=== PATIENT | male | born 1965 | race African-American/Black ===

== ENCOUNTER 2016-09-22 10:27 | Emergency (ER) | payer MEDICAID ==
[~2016-09-22] VITALS: Ht 182.9 cm; Wt 122.5 kg
[2016-09-22] MEDS ORDERED: MORPHINE SULFATE INJ 4 MG/ML DISP.SYRIN ONE ×2 (10:37→10:51)
[2016-09-22] MEDS ORDERED: NITROGLYCERIN PACKET 1 GM PACKET ONE ×2 (10:37→10:52)
[2016-09-22] MEDS ORDERED: ONDANSETRON HCL/PF 4 MG/2 ML VIAL ONE ×2 (10:37→10:51)
--- NOTE | 2016-09-22 10:37 | NUR ---
PRESENTS SELF TO ED DT CHEST PAIN, SHARP, 10/10 X 2 HOURS WORST IN THE LAST 30 MINS,. PATIENT IS AAO4. APPEARS IN MILD DISTRESS DT SEVERE CHEST PAIN. SKIN IS WARM TO TOUCH AND NON DIAPHORETIC,. PT IS AFEBRILE. VSS
[2016-09-22] MEDS ORDERED: ASPIRIN 325 MG TABLET ONE ×2 (10:38→10:52)
--- NOTE | 2016-09-22 10:40 | NUR ---
EKG IN PROGRESS
--- NOTE | 2016-09-22 10:41 | NUR ---
CODE STEMI ACTIVATED BY DR. BLANCO
--- NOTE | 2016-09-22 10:43 | NUR ---
CALLED [facility] SPOKE WITH JOE
--- NOTE | 2016-09-22 10:46 | NUR ---
FAXED EKG AND FACESHEET TO
[2016-09-22 10:54] LABS: BASOPHILS # (AUTO) 0.2 /CMM (0.0-0.2); BASOPHILS % (AUTO) 3.3 % (0.0-2.0); EOSINOPHILS # (AUTO) 0.1 /CMM (0.0-0.7); EOSINOPHILS % (AUTO) 1.5 % (0.0-6.0); HEMATOCRIT 43 % (39-51); HEMOGLOBIN 14.2 g/dL (13.5-17.5); LYMPHOCYTES # (AUTO) 1.1 /CMM (0.8-4.8); LYMPHOCYTES % (AUTO) 20.2 % (20.0-44.0); MEAN CORPUSCULAR HEMOGLOBIN 27 PG (26.0-33.0); MEAN CORPUSCULAR HGB CONC 33 g/dl (31.0-36.0); MEAN CORPUSCULAR VOLUME 83 fL (80-96); MONOCYTES # (AUTO) 0.6 /CMM (0.1-1.30); MONOCYTES % (AUTO) 11.1 % (2.0-12.0); NEUTROPHILS # (AUTO) 3.6 /CMM (1.8-8.9); NEUTROPHILS % (AUTO) 63.9 % (43.0-81.0); PLATELET COUNT (AUTO) 320 /CMM (150-450); RDW COEFFICIENT OF VARIATION 14.6 (11.5-15.0); RED BLOOD CELL COUNT(AUTO) 5.23 MIL/uL (4.5-6.0); WHITE BLOOD COUNT (AUTO) 5.6 K/uL (4.3-11.0)
--- NOTE | 2016-09-22 10:58 | NUR ---
BLADE GROOVER AT BS
[2016-09-22] MEDS ORDERED: HEPARIN SODIUM, PORCINE 5000 UNITS/1 ML VIAL ONE (11:00)
[2016-09-22] MEDS ORDERED: MORPHINE SULFATE INJ 2 MG/ML DISP.SYRIN IV ONE (11:00)
[2016-09-22] MEDS ORDERED: HEPARIN SODIUM, PORCINE 5000 UNITS/1 ML VIAL IV ONE (11:00)
[2016-09-22] MEDS ORDERED: ASPIRIN 325 MG TABLET PO ONE (11:00)
[2016-09-22] MEDS ORDERED: NITROGLYCERIN PACKET 1 GM PACKET TD ONE (11:00)
[2016-09-22] MEDS ORDERED: ONDANSETRON HCL/PF 4 MG/2 ML VIAL IVP ONE (11:00)
[2016-09-22 11:06] LABS: INR 1.02 (0.87-1.13); PROTHROMBIN TIME 10.6 SECS (9.5-12.7)
--- NOTE | 2016-09-22 11:09 | NUR ---
[facility] CALLED, ETA OF 10 MINS. GEOMORPHOLOGY TEACHER PHONE # TO GIVE REPORT .
[2016-09-22 11:11] LABS: TROPONIN I < 0.017 ng/mL (0.00-0.056)
[2016-09-22 11:15] LABS: B-TYPE NATRIURETIC PEPTIDE 205 PG/ML (0-125); CALCIUM, SERUM 9.3 mg/dL (8.5-10.1); CARBON DIOXIDE 26 mmol/L (21-32); CHLORIDE 103 mmol/L (98-107); CREATININE 1.1 mg/dL (0.6-1.3); GLUCOSE 269 mg/dL (74-106); POTASSIUM 4.3 mmol/L (3.5-5.1); SODIUM SERUM 139 mmol/L (136-145)
--- NOTE | 2016-09-22 11:24 | NUR ---
PATIENT WAS PICKED UP BY [facility]. DENYS
[2016-09-22 11:25] VITALS: BP 136/80
[2016-09-22 11:29] LABS: UREA NITROGEN, BLOOD 17 mg/dL (7-18)
== END 2016-09-22 11:27 | disposition short-term general hospital (02) ==
LOC: ER 10:29
DX: I24.9 Acute ischemic heart disease, unspecified (principal); I10 Essential (primary) hypertension; E11.9 Type 2 diabetes mellitus without complications; E78.5 Hyperlipidemia, unspecified
CPT/HCPCS: 36415; 71010; 80048; 83880; 84484; 85025; 85730; 93005 ×2; 96374 ×2; 96375; 99291; A4606; J1644; J2270; J2405; J7030; Z7610

== ENCOUNTER 2017-01-29 16:36 | Inpatient (IN) | payer OTHER ==
[~2017-01-29] VITALS: Ht 185.4 cm; Wt 113.4 kg
--- NOTE | 2017-01-29 16:45 | NUR ---
PT CAME IN WITH C/O SLIPPED AND FELL IN THE BATHROOM LAST NIGHT,C/O PAIN AND NUMBNESS IN LEFT SIDE OF THE BODY. SEEN BY FOR EVAL. ADRIAN FLANNERY. VSS. PT AAOX3. SAFETY AND COMFORT MEASURES PROVIDED. WILL MONITOR.
[2017-01-29 18:14] LABS: BASOPHILS # (AUTO) 0.1 /CMM (0.0-0.2); BASOPHILS % (AUTO) 2.2 % (0.0-2.0); EOSINOPHILS # (AUTO) 0.1 /CMM (0.0-0.7); EOSINOPHILS % (AUTO) 1.5 % (0.0-6.0); HEMATOCRIT 43 % (39-51); HEMOGLOBIN 14.4 g/dL (13.5-17.5); LYMPHOCYTES # (AUTO) 1.1 /CMM (0.8-4.8); LYMPHOCYTES % (AUTO) 20.8 % (20.0-44.0); MEAN CORPUSCULAR HEMOGLOBIN 28 PG (26.0-33.0); MEAN CORPUSCULAR HGB CONC 33 g/dl (31.0-36.0); MEAN CORPUSCULAR VOLUME 83 fL (80-96); MONOCYTES # (AUTO) 0.4 /CMM (0.1-1.30); MONOCYTES % (AUTO) 7.6 % (2.0-12.0); NEUTROPHILS # (AUTO) 3.6 /CMM (1.8-8.9); NEUTROPHILS % (AUTO) 67.9 % (43.0-81.0); PLATELET COUNT (AUTO) 256 /CMM (150-450); RDW COEFFICIENT OF VARIATION 13.3 (11.5-15.0); RED BLOOD CELL COUNT(AUTO) 5.24 MIL/uL (4.5-6.0); WHITE BLOOD COUNT (AUTO) 5.3 K/uL (4.3-11.0)
--- NOTE | 2017-01-29 18:25 | NUR ---
PT TAKEN TO CT SCAN.
[2017-01-29 18:27] LABS: INR 1.08 (0.87-1.13); PROTHROMBIN TIME 11.2 SECS (9.5-12.7)
[2017-01-29 18:30] LABS: ALANINE AMINOTRANSFERASE 25 U/L (12-78); ALBUMIN 3.4 g/dL (3.4-5.0); ALKALINE PHOSPHATASE 62 U/L (46-116); ASPARTATE AMINOTRANSFERASE 14 U/L (15-37); BILIRUBIN,DIRECT 0.2 mg/dL (0.0-0.2); BILIRUBIN,TOTAL 1.3 mg/dL (0.2-1.0); CALCIUM, SERUM 9.1 mg/dL (8.5-10.1); CARBON DIOXIDE 27 mmol/L (21-32); CHLORIDE 104 mmol/L (98-107); CREATININE 1.1 mg/dL (0.6-1.3); SODIUM SERUM 137 mmol/L (136-145); TOTAL PROTEIN, SERUM 6.9 g/dL (6.4-8.2); UREA NITROGEN, BLOOD 17 mg/dL (7-18)
[2017-01-29 18:32] LABS: TROPONIN I < 0.017 ng/mL (0.00-0.056)
[2017-01-29 18:33] LABS: GLUCOSE 358 mg/dL (74-106)
[2017-01-29 18:49] LABS: APPEARANCE,URINE Clear (CLEAR); BILIRUBIN,URINE Negative (NEGATIVE); BLOOD, URINE Negative Ery/uL (NEGATIVE); COLOR,URINE Yellow (YELLOW); KETONES,URINE Trace (NEGATIVE); LEUKOCYTE ESTERASE ,URINE Negative (NEGATIVE); NITRITE, URINE Negative (NEGATIVE); PH,URINE 5.5 (5.0-8.0); PROTEIN,URINE Negative (NEGATIVE); UGLUCOSE >=1000 mg/dL (NEGATIVE)
--- NOTE | 2017-01-29 19:20 | NUR ---
PT COMPLAINS OF PAIN- MD AWARE. RECEIVED VERBAL ORDERS FOR TYLENOL 1 GRAM PO. ORDERS CARRIED OUT.
[2017-01-29] MEDS ORDERED: ACETAMINOPHEN ES 500 MG TABLET ONE (19:22)
--- NOTE | 2017-01-29 20:04 | NUR ---
AT TO DISCUSS TEST RESULTS TO PT.
[2017-01-29] MEDS ORDERED: KETOROLAC TROMETHAMINE INJ 60 MG/2 ML VIAL IM ONE (20:30)
[2017-01-29] MEDS ORDERED: KETOROLAC TROMETHAMINE INJ 30 MG/ML VIAL ONE (20:36)
[2017-01-29] MEDS ORDERED: MORPHINE SULFATE INJ 2 MG/ML DISP.SYRIN IV PRN (22:00)
[2017-01-29] MEDS ORDERED: MAGNESIUM HYDROXIDE 30 ML UDC PO PRN (22:00)
[2017-01-29] MEDS ORDERED: HYDROCODONE/APAP 5/325MG 1 EACH TABLET PO PRN (22:00)
[2017-01-29] MEDS ORDERED: ONDANSETRON HCL/PF 4 MG/2 ML VIAL IVP PRN (22:00)
[2017-01-29] MEDS ORDERED: Z GUARD REMEDY 2 OZ OINT TP PRN (22:00)
[2017-01-29] MEDS ORDERED: MAG HYDROX/AL HYDROX/SIMETH 30 ML UDC PO PRN (22:00)
[2017-01-29] MEDS ORDERED: ACETAMINOPHEN 325 MG TABLET PO PRN (22:00)
--- NOTE | 2017-01-29 22:25 | NUR ---
PT REFUSED ULTRASOUND, JACEK MOFFETT NP
--- NOTE | 2017-01-29 22:33 | NUR ---
REPORT GILDARDO CHILEL FOR MS 203.
--- NOTE | 2017-01-29 22:35 | NUR ---
RN NOTES PT IS COMPLAINING OF PAIN ON BOTH LOWER LEG AND LEFT SIDE OF HIS BODY, 11/21. MORPHINE 2MG GIVEN IV. WILL CONTINUE TO MONITOR PT.
--- NOTE | 2017-01-29 22:55 | NUR ---
RN NOTES ADMITTED A 51 YEARS OLD MALE PT FROM ER VIA GURNEY. PT ALERT AND ORIENTED X3, DENIES NAUSEA AND VOMITING. STILL COMPLAINING OF PAIN ON BOTH LOWER LEG AND LEFT SIDE OF THE BODY. IV ACCESS ON LEFT AC PATENT AND INTACT. AMBULATES TO THE BATHROOM WITH FWW WITH ASSIST. SKIN AND BODY ASSESSMENT DONE, SKIN CLEAR AND INTACT. KEPT COMFORTABLE AND ATTENDED, WITH CALL LIGHT WITHIN REACH. PLAN OF CARE DISCUSSED WITH THE PT. WILL CONTINUE TO MONITOR.
[2017-01-29 23:00] VITALS: BP 162/85
[2017-01-29] MEDS ORDERED: MORPHINE SULFATE INJ 2 MG/ML DISP.SYRIN ONE (23:28)
[2017-01-30] MEDS ORDERED: ASPI-605 PO (00:29)
[2017-01-30] MEDS ORDERED: *INS REG3 IJ (00:29)
[2017-01-30] MEDS ORDERED: GABA600T2 PO (00:29)
[2017-01-30] MEDS ORDERED: LANTUS SUBCUT (00:29)
[2017-01-30] MEDS ORDERED: ATOR20TA PO (00:29)
[2017-01-30] MEDS ORDERED: BENA20TA2 PO (00:29)
--- NOTE | 2017-01-30 00:55 | NUR ---
RN NOTES PT STILL COMPLAINING OF SEVERE PAIN AFTER GIVING MORPHINE AND REFUSED TO TAKE NORCO 5/325MG TAB. PT SAID HE'S TAKING NORCO 10/325 AND DILAUDID 4MG AT HOME. JACEK MOFFETT MADE AWARE WITH ORDER OF DILAUDID 1MG IVP X1.
[2017-01-30] MEDS ORDERED: HYDROMORPHONE 1 MG/1 ML DISP.SYRIN IV PRN (01:00)
--- NOTE | 2017-01-30 01:39 | NUR ---
RN NOTES DILAUDID INJECTION UNAVAILABLE, JACEK MOFFETT MADE AWARE WITH ORDER TO GIVE MORPHINE 2MG Q2H PRN AND ND NORCO 10/325 MG TAB Q6H PRN. PT NOTIFIED OF THE NEW ORDER AND PREFERS TO TAKE NORCO 10/325 MG TAB INSTEAD OF MORPHINE. WILL CONTINUE TO MONITOR.
[2017-01-30] MEDS ORDERED: HYDROCODONE/APAP 10/325MG 1 EA TABLET ONE (01:49)
[2017-01-30] MEDS: HYDROCODONE/APAP 10/325MG 1 EA TABLET PO PRN ×2 (01:53→09:20)
--- NOTE | 2017-01-30 01:53 | NUR ---
RN NOTES NORCO 10/325MG TAB GIVEN PO FOR 10/10 GENERALIZED PAIN. WILL CONTINUE TO MONITOR PT.
[2017-01-30] MEDS ORDERED: DEXTROSE 50%-WATER 50 ML DISP.SYRIN IV PRN (02:00)
[2017-01-30 06:26] LABS: BASOPHILS % (AUTO) 0.8 % (0.0-2.0); EOSINOPHILS # (AUTO) 0.2 /CMM (0.0-0.7); EOSINOPHILS % (AUTO) 3.2 % (0.0-6.0); HEMATOCRIT 38 % (39-51); HEMOGLOBIN 12.2 g/dL (13.5-17.5); LYMPHOCYTES # (AUTO) 1.4 /CMM (0.8-4.8); LYMPHOCYTES % (AUTO) 28.9 % (20.0-44.0); MEAN CORPUSCULAR HEMOGLOBIN 27 PG (26.0-33.0); MEAN CORPUSCULAR HGB CONC 33 g/dl (31.0-36.0); MEAN CORPUSCULAR VOLUME 83 fL (80-96); MONOCYTES # (AUTO) 0.6 /CMM (0.1-1.30); MONOCYTES % (AUTO) 13.3 % (2.0-12.0); NEUTROPHILS # (AUTO) 2.5 /CMM (1.8-8.9); NEUTROPHILS % (AUTO) 53.8 % (43.0-81.0); PLATELET COUNT (AUTO) 214 /CMM (150-450); RDW COEFFICIENT OF VARIATION 14.2 (11.5-15.0); WHITE BLOOD COUNT (AUTO) 4.7 K/uL (4.3-11.0)
[2017-01-30] MEDS: BLOOD SUGAR DIAGNOSTIC 1 EACH STRIP IN SCH ×4 (06:48→21:12)
[2017-01-30] MEDS: INSULIN REGULAR, HUMAN 100 UNIT/ML 3 ML VIAL SQ PRN ×4 (06:50→22:16)
--- NOTE | 2017-01-30 07:20 | NUR ---
ms rn initial notes Received patient in bed, awake, head of bed elevated, no SOB or distress noted, on room air and tolerated well. Patient is verbally responsive and able to make needs known. IV intact and patent. Kept patient clean and comfortable in bed, call light with in patient reach, will continue to monitor accordingly.
[2017-01-30 07:28] LABS: CALCIUM, SERUM 8.5 mg/dL (8.5-10.1); CREATININE 1.1 mg/dL (0.6-1.3); MAGNESIUM 1.7 mg/dL (1.8-2.4); PHOSPHORUS 3.5 mg/dL (2.5-4.9)
--- NOTE | 2017-01-30 07:28 | NUR ---
RN NOTES PT AWAKE IN BED, ON ROOM AIR AND TOLERATED WELL. VITAL SIGNS STABLE. KEPT PAIN AT TOLERABLE LEVEL. NO EPISODE OF NAUSEA AND VOMITING. SAFETY MEASURES AND FALL PRECAUTION OBSERVED. ALL NEEDS ATTENDED. ENDORSED TO MORNING RN FOR CONTINUITY OF CARE.
[2017-01-30 07:39] LABS: THYROID STIMULATING HORMONE 0.532 uIU/mL (0.358-3.74)
[2017-01-30 07:50] VITALS: BP 164/107
[2017-01-30 08:00] VITALS: BP 164/107
[2017-01-30] MEDS: GABAPENTIN 300 MG CAPSULE PO SCH ×3 (08:10→16:35)
[2017-01-30] MEDS: BENAZEPRIL HCL 20 MG TABLET PO SCH ×2 (08:11→16:36)
[2017-01-30] MEDS: ASPIRIN EC 81 MG TABLET.DR PO SCH (08:11)
[2017-01-30] MEDS: MORPHINE SULFATE INJ 2 MG/ML DISP.SYRIN IV PRN ×3 (08:11→13:17)
[2017-01-30] MEDS: INSULIN DETEMIR 100 UNIT/ML CARTRIDGE SQ SCH ×2 (09:32→21:24)
--- NOTE | 2017-01-30 10:09 | NUR ---
MS RN NOTES Dr. Escobedo came seen and examined the patient and ordered pain management consult Dr. Quiroz. All orders carried out and noted. Will continue to monitor accordingly.
[2017-01-30] MEDS: Magnesium 1GM/D5W 100ML PREMIX 100 ML IV SCH ×2 (13:01→14:36)
[2017-01-30] MEDS: oxyCODONE HCL SR 10MG TAB.SR.12H PO SCH ×2 (14:55→21:06)
[2017-01-30] MEDS: ACETAMINOPHEN 325 MG TABLET PO SCH ×3 (14:55→23:27)
[2017-01-30 16:00] VITALS: BP 153/107
[2017-01-30] MEDS: oxyCODONE IR immediate release 5 MG CAPSULE PO PRN (16:35)
[2017-01-30] MEDS: DOCUSATE SODIUM 100 MG CAPSULE PO SCH (16:36)
--- NOTE | 2017-01-30 16:42 | NUR ---
Met with patient, he is alert and very pleasant. He lives alone, prior to admission he was ambulating with a cane, he is independent with adl's. Has a cane and walker at home, no homehealth reported. Patient might need transportation once discharge. Addendum: 01/30/17 at 1642 by ROMA ZENG RN Amended: Links added.
--- NOTE | 2017-01-30 19:09 | NUR ---
ms rn closing notes All needs provided, attended, and anticipated. Kept patient clean and comfortable in bed, call light with in patient reach, Endorsed to next shift RN to continue care.
--- NOTE | 2017-01-30 19:30 | NUR ---
RN NOTE; RECEIVED PT SITTING AT THE EDGE OF THE BED. BREATHING EVENLY. NO SOB. NAD. REPORTED FEELING MUCH BETTER AND PAIN IS CONTROLLED WELL AT THIS TIME. SKIN WARM AND DRY. NEEDS ATTENDED. PT WAS ENCOURAGED TO USE THE CALL LIGHT AND ASK FOR ASSISTANCE TO AMBULATE .BED LOW LOCKED. CALL LIGHT WITHIN REACH. WILL CONT TO MONITOR
[2017-01-30 20:00] VITALS: BP 128/84
[2017-01-30] MEDS: ATORVASTATIN 10 MG TABLET PO SCH (21:05)
--- NOTE | 2017-01-30 22:17 | NUR ---
PT REFUSED SSI REGULAR INSULIN 4UNITS. RISKS VS. BENEFITS EXPLAINED T O TH PT. PT STATED HIS LONG ACTING INSULIN WILL TAKE CARE OF HIS BS:[id number]. PT TEACHING PROVIDED . WILL CONT TO MONITOR,
[2017-01-31] MEDS: oxyCODONE IR immediate release 5 MG CAPSULE PO PRN ×3 (02:59→14:26)
--- NOTE | 2017-01-31 03:00 | NUR ---
oxy IR given for c/o severe back and LLE pain. will cont monitor.
[2017-01-31] MEDS: ACETAMINOPHEN 325 MG TABLET PO SCH ×4 (05:30→23:19)
--- NOTE | 2017-01-31 06:37 | NUR ---
RN NOTE; PT IN BED DOZING INTERMITTENTLY. BREATHING EVENLY. NO SOB. NAD. PAIN CONTROLLED WELL. NO S/S OF HYPO OR HYPERGLYCEMIA. ASSISTED W/ ADLS. NEEDS MET. CALL LIGHT WITHIN REACH. WILL CONT TO MONITOR AND WILL ENDORSE TO AM SHIFT FOR GAYLE.
[2017-01-31 06:41] LABS: BASOPHILS % (AUTO) 0.8 % (0.0-2.0); EOSINOPHILS # (AUTO) 0.2 /CMM (0.0-0.7); EOSINOPHILS % (AUTO) 4.9 % (0.0-6.0); HEMATOCRIT 39 % (39-51); HEMOGLOBIN 12.6 g/dL (13.5-17.5); LYMPHOCYTES # (AUTO) 1.2 /CMM (0.8-4.8); LYMPHOCYTES % (AUTO) 25.8 % (20.0-44.0); MEAN CORPUSCULAR HEMOGLOBIN 27 PG (26.0-33.0); MEAN CORPUSCULAR HGB CONC 32 g/dl (31.0-36.0); MEAN CORPUSCULAR VOLUME 84 fL (80-96); MONOCYTES # (AUTO) 0.6 /CMM (0.1-1.30); MONOCYTES % (AUTO) 13.8 % (2.0-12.0); NEUTROPHILS # (AUTO) 2.5 /CMM (1.8-8.9); NEUTROPHILS % (AUTO) 54.7 % (43.0-81.0); PLATELET COUNT (AUTO) 216 /CMM (150-450); RDW COEFFICIENT OF VARIATION 14.6 (11.5-15.0); RED BLOOD CELL COUNT(AUTO) 4.65 MIL/uL (4.5-6.0); WHITE BLOOD COUNT (AUTO) 4.5 K/uL (4.3-11.0)
[2017-01-31] MEDS: BLOOD SUGAR DIAGNOSTIC 1 EACH STRIP IN SCH ×4 (06:56→21:23)
[2017-01-31] MEDS: INSULIN REGULAR, HUMAN 100 UNIT/ML 3 ML VIAL SQ PRN ×4 (06:57→21:27)
[2017-01-31 07:35] LABS: CALCIUM, SERUM 8.8 mg/dL (8.5-10.1); CREATININE 0.9 mg/dL (0.6-1.3); MAGNESIUM 1.9 mg/dL (1.8-2.4); PHOSPHORUS 4.1 mg/dL (2.5-4.9); POTASSIUM 3.9 mmol/L (3.5-5.1)
[2017-01-31 08:00] VITALS: BP 144/100
--- NOTE | 2017-01-31 08:00 | NUR ---
MS RN NOTES PATIENT IN BED RESTING NO SOB OR ACUTE DISTRESS NOTED. PATIENT ALERT ORIENTED X2. PERIPHERAL IV INTACT PATENT. BED IN LOW LOCKED POSITION CALL LIGHT WITHIN REACH. WILL CONTINUE TO MONITOR.
[2017-01-31] MEDS: DOCUSATE SODIUM 100 MG CAPSULE PO SCH ×2 (08:15→17:00)
[2017-01-31] MEDS: GABAPENTIN 300 MG CAPSULE PO SCH ×3 (08:15→17:00)
[2017-01-31] MEDS: ASPIRIN EC 81 MG TABLET.DR PO SCH (08:16)
[2017-01-31] MEDS: oxyCODONE HCL SR 10MG TAB.SR.12H PO SCH ×2 (08:16→21:23)
[2017-01-31] MEDS: BENAZEPRIL HCL 20 MG TABLET PO SCH ×2 (08:17→17:01)
[2017-01-31] MEDS: INSULIN DETEMIR 100 UNIT/ML CARTRIDGE SQ SCH ×2 (08:18→21:32)
--- NOTE | 2017-01-31 12:00 | NUR ---
MS RN NOTES PATIENT SEEN AND EVALUATED BY EDEL WATCH COMMANDER ORDERS NOTED AND CARRIED OUT.
[2017-01-31 16:00] VITALS: BP 135/94
--- NOTE | 2017-01-31 19:30 | NUR ---
RN NOTE; RECEIVED PT IN BED AWAKE AND ALERT, BREATHING EVENLY. NO SOB. NAD. REPORTED PAIN UNDER CONTROL. . PT TEACHING REGARDING PAIN MANAGEMENT AND FALL PREVENTION PROVIDED. NEEDS ATTENDED. BED LOW LOCKED. CALL LIGHT WITHIN REACH. WILL CONT TO MONITOR,
--- NOTE | 2017-01-31 19:31 | NUR ---
MS RN NOTES PATIENT IN BED RESTING NO SOB OR ACUTE DISTRESS NOTED. ALL DUE MEDICATIONS ADMINISTERED ALL NEEDS MET WILL ENDORSE TO PM SHIFT GAYLE.
[2017-01-31 20:00] VITALS: BP 119/66
[2017-01-31] MEDS: ATORVASTATIN 10 MG TABLET PO SCH (21:22)
[2017-02-01] MEDS: oxyCODONE IR immediate release 5 MG CAPSULE PO PRN ×3 (04:49→18:40)
--- NOTE | 2017-02-01 04:52 | NUR ---
oxy IR given for c/o severe back and BLE pain. will cont monitor.
[2017-02-01] MEDS: ACETAMINOPHEN 325 MG TABLET PO SCH ×4 (05:26→23:19)
--- NOTE | 2017-02-01 06:00 | NUR ---
CALLED DR. GLASER AND RELAYED THE PT'S CONDITION. PAIN NOT RELIVED BY OXY IR. AND PT IS REQUESTING FOR A DIFFERENT PAIN MEDICATION. DR. GLASER W/ NO NEW ORDER. WARM PACK APPLIED . PT REPOSITIONED . WILL CONT TO MONITOR,
--- NOTE | 2017-02-01 07:00 | NUR ---
RN NOTE; PT IN BED AWAKE AND ALERT,. REPORTED PAIN IS RELIVED BY HOT PACK. NO ACUTE EVENT DURING THE NIGHT, NEEDS MET. CALL LIGHT WITHIN REACH. WILL CONT TO MONITOR,
[2017-02-01] MEDS: BLOOD SUGAR DIAGNOSTIC 1 EACH STRIP IN SCH ×4 (07:16→21:48)
[2017-02-01] MEDS: INSULIN REGULAR, HUMAN 100 UNIT/ML 3 ML VIAL SQ PRN ×4 (07:19→21:53)
[2017-02-01 08:00] VITALS: BP 142/82
--- NOTE | 2017-02-01 08:00 | NUR ---
MS RN NOTES PATIENT IN BED RESTING NO SOB OR ACUTE DISTRESS NOTED. PATIENT ALERT, ORIENTED X4. BED IN LOW LOCKED POSITION CALL LIGHT WITHIN REACH. WILL CONTINUE TO MONITOR.
[2017-02-01] MEDS: GABAPENTIN 300 MG CAPSULE PO SCH ×3 (09:19→17:24)
[2017-02-01] MEDS: oxyCODONE HCL SR 10MG TAB.SR.12H PO SCH (09:19)
[2017-02-01] MEDS: DOCUSATE SODIUM 100 MG CAPSULE PO SCH ×2 (09:19→17:24)
[2017-02-01] MEDS: BENAZEPRIL HCL 20 MG TABLET PO SCH ×2 (09:20→17:24)
[2017-02-01] MEDS: ASPIRIN EC 81 MG TABLET.DR PO SCH (09:20)
[2017-02-01] MEDS: INSULIN DETEMIR 100 UNIT/ML CARTRIDGE SQ SCH ×2 (09:22→21:54)
--- NOTE | 2017-02-01 12:00 | NUR ---
MS RN NOTES PATIENT SEEN AND EVALUATED BY EDEL UMBRELLA FINISHER ORDERS NOTED AND CARRIED OUT.
[2017-02-01 16:00] VITALS: BP 129/79
[2017-02-01] MEDS ORDERED: oxyCODONE HCL SR 10MG TAB.SR.12H PO SCH (18:00)
--- NOTE | 2017-02-01 19:39 | NUR ---
MS RN NOTES PATIENT IN BED RESTING. NO SOB OR ACUTE DISTRESS NOTED ALL DUE MEDICATIONS ADMINISTERED. PAIN MANAGED WELL WITH MEDICATIONS. ALL NEEDS MET. ENDORSED CARE TO PM SHIFT.
[2017-02-01 20:00] VITALS: BP 155/80
--- NOTE | 2017-02-01 20:00 | NUR ---
RN NOTES RECEIVED PATIENT IN BED, ALERT AND ORIENTED X3, CALM, NO SOB, NO DISTRESS, ON ROOM AIR, SPO2 100%, KEPT SAFE AND COMFORTABLE, CALL LIGHT WITHIN REACH.
[2017-02-01] MEDS: ATORVASTATIN 10 MG TABLET PO SCH (21:48)
[2017-02-02] MEDS: oxyCODONE IR immediate release 5 MG CAPSULE PO PRN ×4 (00:53→13:01)
[2017-02-02] MEDS: ACETAMINOPHEN 325 MG TABLET PO SCH ×2 (06:10→12:13)
[2017-02-02] MEDS: INSULIN REGULAR, HUMAN 100 UNIT/ML 3 ML VIAL SQ PRN ×2 (06:28→12:19)
[2017-02-02] MEDS: BLOOD SUGAR DIAGNOSTIC 1 EACH STRIP IN SCH ×2 (06:43→12:13)
--- NOTE | 2017-02-02 06:58 | NUR ---
RN NOTES PATIENT IN BED, ALERT AND AWAKE, NO SOB, NO RESPIRATORY DISTRESS, PROVIDED PAIN MEDICATION DURING SHIFT, KEPT SAFE AND COMFORTABLE, CALL LIGHT WITHIN REACH.
[2017-02-02 08:03] VITALS: BP 161/93
[2017-02-02] MEDS: DOCUSATE SODIUM 100 MG CAPSULE PO SCH (08:39)
[2017-02-02] MEDS: GABAPENTIN 300 MG CAPSULE PO SCH ×2 (08:39→12:13)
[2017-02-02] MEDS: ASPIRIN EC 81 MG TABLET.DR PO SCH (08:39)
[2017-02-02] MEDS: BENAZEPRIL HCL 20 MG TABLET PO SCH (08:40)
[2017-02-02] MEDS: INSULIN DETEMIR 100 UNIT/ML CARTRIDGE SQ SCH (08:41)
[2017-02-02] MEDS ORDERED: oxyCODONE HCL SR 20MG TAB.SR.12H PO SCH (09:00)
[2017-02-02] MEDS ORDERED: oxyCODONE HCL SR 10MG PO (12:34)
[2017-02-02] MEDS ORDERED: oxyCODONE HCL SR 20MG PO (12:34)
[2017-02-02] MEDS ORDERED: OXYC5CAP18 PO (12:34)
[2017-02-02] MEDS ORDERED: GABA300C PO (12:34)
--- NOTE | 2017-02-02 16:15 | NUR ---
M/S RN - Discharge Patient alert and oriented throughout the shift, denies pain, not in any form of distress, no c/o of numbness or tingling sensation on the left lower ext, able to ambulate with a cane, discharge home in stable condition. Patient was offered a group home placement earlier but refused. Per patient, his brother will pick him up and he'll stay at his place. Reviewed discharge instructions with patient and he verbalized full understanding of all teachings including medication management and follow up care with his PCP. Discharge papers and written prescription for gabapentin given. All belongings with the patient and he denies any missing items. Heplock removed on the LAC with catheter tip intact, no swelling, no redness at the IV site. Accompanied to the lobby and transported by private car.
[2017-02-02 16:18] VITALS: BP 121/75
== END 2017-02-02 16:15 | disposition home or self-care (01) | DRG 861 ==
LOC: ER 16:38 → MEDSG2 21:03
PROVIDERS: ADMIT Nurse Practitioner Acute Care; ATTEND Nurse Practitioner Acute Care
DX: G89.11 Acute pain due to trauma (principal); E11.42 Type 2 diabetes mellitus with diabetic polyneuropathy; E11.65 Type 2 diabetes mellitus with hyperglycemia; I10 Essential (primary) hypertension; R17 Unspecified jaundice; W18.2XXA Fall in (into) shower or empty bathtub, initial encounter; E78.5 Hyperlipidemia, unspecified; G89.4 Chronic pain syndrome; Y92.002 Bathroom of unspecified non-institutional (private) residence as the place of occurrence of the external cause; M19.90 Unspecified osteoarthritis, unspecified site; Z79.4 Long term (current) use of insulin; Z79.82 Long term (current) use of aspirin; Y93.E1 Activity, personal bathing and showering; Z79.891 Long term (current) use of opiate analgesic; M79.662 Pain in left lower leg
CPT/HCPCS: 36415; 70450-TC; 71010-TC; 72125-TC; 72128-TC; 72131-TC; 72170-TC; 80048-TC; 80061-TC; 80076-TC; 80305; 81000-TC; 82962-TC; 83735-TC; 84100-TC; 84443-TC; 84484-TC; 85025-TC; 85730-TC; 87081-TC; 97116-TC; 97530-TC; A4606; J1815; J1885; J2270; J3475; J7050; Z7610

== ENCOUNTER 2017-04-29 12:15 | Emergency (ER) | payer OTHER ==
[~2017-04-29] VITALS: Ht 185.4 cm; Wt 154.2 kg
[~2017-04-29 12:15] MED LIST: *INS REG3 IJ; ASPI-605 PO; ATOR20TA PO; BENA20TA2 PO; GABA300C PO; LANTUS SUBCUT; OXYC5CAP18 PO; oxyCODONE HCL SR 10MG PO; oxyCODONE HCL SR 20MG PO
[2017-04-29] MEDS ORDERED: ONDANSETRON 4 MG TAB.RAPDIS ONE (12:29)
[2017-04-29] MEDS: ONDANSETRON 4 MG TAB.RAPDIS SL ONE (12:35)
[2017-04-29 12:51] LABS: INR 1.02 (0.85-1.15)
[2017-04-29 12:53] LABS: ALANINE AMINOTRANSFERASE 35 U/L (12-78); ALBUMIN 3.5 g/dL (3.4-5.0); ALKALINE PHOSPHATASE 57 U/L (46-116); ASPARTATE AMINOTRANSFERASE 31 U/L (15-37); BILIRUBIN,DIRECT 0.2 mg/dL (0.0-0.2); CALCIUM, SERUM 8.8 mg/dL (8.5-10.1); CARBON DIOXIDE 26 mmol/L (21-32); CHLORIDE 104 mmol/L (98-107); GLUCOSE 146 mg/dL (74-106); SODIUM SERUM 136 mmol/L (136-145); TOTAL PROTEIN, SERUM 7.4 g/dL (6.4-8.2); UREA NITROGEN, BLOOD 25 mg/dL (7-18)
[2017-04-29 12:55] LABS: TROPONIN I < 0.017 ng/mL (0.00-0.056)
[2017-04-29 13:00] LABS: BASOPHILS % (AUTO) 0.9 % (0.0-2.0); EOSINOPHILS # (AUTO) 0.2 /CMM (0.0-0.7); EOSINOPHILS % (AUTO) 5.2 % (0.0-6.0); HEMATOCRIT 39 % (39-51); HEMOGLOBIN 12.9 g/dL (13.5-17.5); LYMPHOCYTES % (AUTO) 30.2 % (20.0-44.0); MEAN CORPUSCULAR HEMOGLOBIN 28 PG (26.0-33.0); MEAN CORPUSCULAR HGB CONC 33 g/dl (31.0-36.0); MEAN CORPUSCULAR VOLUME 83 fL (80-96); MONOCYTES # (AUTO) 0.5 /CMM (0.1-1.30); MONOCYTES % (AUTO) 13.9 % (2.0-12.0); NEUTROPHILS # (AUTO) 1.6 /CMM (1.8-8.9); NEUTROPHILS % (AUTO) 49.8 % (43.0-81.0); PLATELET COUNT (AUTO) 251 /CMM (150-450); RDW COEFFICIENT OF VARIATION 13.5 (11.5-15.0); RED BLOOD CELL COUNT(AUTO) 4.68 MIL/uL (4.5-6.0); WHITE BLOOD COUNT (AUTO) 3.3 K/uL (4.3-11.0)
[2017-04-29 13:20] LABS: POTASSIUM 4.1 mmol/L (3.5-5.1)
--- NOTE | 2017-04-29 13:50 | NUR ---
IV removed. Catheter intact and site benign. Pressure and 4x4 applied to site. No bleeding noted.
--- NOTE | 2017-04-29 14:12 | NUR ---
IV removed. Catheter intact and site benign. Pressure and 4x4 applied to site. No bleeding noted.Patient discharged to home in stable condition. Written and verbal after care instructions given. Patient verbalizes understanding of instruction.
--- NOTE | 2017-04-29 14:12 | NUR ---
Patient discharged to home in stable condition. Written and verbal after care instructions given. Patient verbalizes understanding of instruction.
--- NOTE | 2017-04-29 14:17 | NUR ---
Patient discharged to home in stable condition. Written and verbal after care instructions given. Patient verbalizes understanding of instruction.
[2017-04-29 14:55] VITALS: BP 158/84
== END 2017-04-29 14:56 | disposition home or self-care (01) ==
LOC: ER 12:19
DX: R42 Dizziness and giddiness (principal); E11.9 Type 2 diabetes mellitus without complications; I10 Essential (primary) hypertension; Z79.4 Long term (current) use of insulin; Z79.82 Long term (current) use of aspirin
CPT/HCPCS: 36415; 70450-TC; 71045-TC; 80048-TC; 80076-TC; 84484-TC; 85025-TC; 85730-TC; A4606; Q0162; Z7610